=== PATIENT | male | born 1960 | race Caucasian/White ===

== ENCOUNTER 2022-01-02 14:05 | Outpatient (CLI) | payer OTHER, SELFPAY ==
[2022-01-02 21:53] LABS: Albumin* 4.8 g/dL (3.3-5.0)
[2022-01-02 21:54] LABS: Chloride* 102 mmol/L (96-114); Potassium* 4.4 mmol/L (3.6-5.1); Sodium* 139 mmol/L (135-149)
[2022-01-02 21:56] LABS: Aspartate Amino Transferase* 20 U/L (12-35); Bilirubin Total* 0.9 mg/dL (0.1-1.5); Carbon Dioxide* 26 mmol/L (20-32); Cholesterol* 284 mg/dL (90-199); Creatinine* 0.9 mg/dL (0.5-1.5); Estimated Glomerular Filt Rate 98 ml/min; Total Protein* 7.8 g/dL (6.0-8.3)
[2022-01-02 21:57] LABS: Alanine Aminotransferase* 23 U/L (4-50); Alkaline Phosphatase* 85 U/L (40-150); Blood Urea Nitrogen* 19 mg/dL (7-30); Calcium* 9.7 mg/dL (8.4-10.6); Glucose* 328 mg/dL (60-115); HDL Cholesterol* 55 mg/dL (>=40); LDL Cholesterol Calculated 159 mg/dL (<100); Triglycerides* 352 mg/dL (40-149)
[2022-01-02 22:14] LABS: Creatinine Urine 207.3 mg/dL
[2022-01-02 22:18] LABS: Microalbumin Creatinine Ratio 10 mg/g (0-30); Microalbumin Urine 4 mg/dL
== END 2022-01-02 14:06 | disposition home or self-care (01) ==
PROVIDERS: PCP Family Medicine; Visit Provider Family Medicine
DX: Z00.00 Encounter for general adult medical examination without abnormal findings (principal); E11.9 Type 2 diabetes mellitus without complications; I10 Essential (primary) hypertension; E78.5 Hyperlipidemia, unspecified; E66.9 Obesity, unspecified
CPT/HCPCS: 80053; 80061; 82043; 82570

== ENCOUNTER 2023-02-20 08:43 | Outpatient (CLI) | payer OTHER, SELFPAY ==
--- OUTSIDE RECORDS SUMMARY | 2023-02-25 21:17 | XMS_ITS | Clinical Summary ---
Author Name Unknown Organization [facility] Address [place], [place] [address] Care Team Providers Care Electrolysis Engineer Name Role Phone Pcp, No Primary Care Provider Unavailabl e Allergies No known active allergies Medications Medication Sig Dispensed Refills Start Date End Date Status lisinopril (PRINIVIL; ZESTRIL) 10 mg tablet 0 01/24/2013 Act leigh simvastatin (ZOCOR) 10 mg tablet Take 1 tablet by mouth at bedtime. 0 04/16/2013 Active glipiZIDE (GLUCOTROL XL) 5 mg Extended-Release tablet Take 1 tablet by mouth once daily before a meal. 0 04/16/2013 Active metFORMIN (GLUCOPHAGE) 850 mg tablet Take 1 tablet by mouth 2 times daily with meals. 0 04/16/2013 Active aspirin chewable 81 mg chewable tablet Take 1 tablet by mouth once daily with a meal. 0 04/16/2013 Active fish oil-omega-3 fatty acids (FISH OIL) 1,200-360 mg cap Take 1 capsule by mouth once daily. 0 04/16/2013 Active loratadine (CLARITIN) 10 mg tablet Take 1 tablet by mouth once daily. 0 04/16/2013 Active multivitamin-folic acid 0.4 mg (MEN'S MULTI-VITAMIN) tablet Take 1 tablet by mouth once daily. 0 04/16/2013 Active glucosamine sulfate (GLUCOSAMINE) 500 mg tab Take 1 tablet by mouth 3 times daily. 0 04/16/2013 Active Melatonin 5 mg tab Take 1 tablet by mouth at bedtime if needed for Sleep. 0 04/16/2013 Active Saw Jackson 80 mg capsule Take by mouth once daily. 0 04/16/2013 Active Cinnamon Bark (CINNAMON) 500 mg capsule Take by mouth. 0 04/16/2013 Active acetaminophen-codeine , 300-30 mg, (TYLENOL #3) 300-30 mg tabletIndications:Abs cess Take 1-2 tablets by mouth every 4 hours if needed for Pain. 25 tablet 0 04/16/2013 Active Social History Tobacco Use Types Packs/Day Years Used Date Smoking Tobacco: Never Smokeless Tobacco: Never Alcohol Use Standard Drinks/Week Comments Not Asked 0 (1 standard drink = 0.6 oz pur e alcohol) Sex and Gender Information Value Date Recorded Sex Assigned at Not on file Gender Identity Not on file Sexual Orientation Not on file Obstetrics History Last Filed Vital Signs Vital Sign Reading Time Taken Comments Blood Pressure 135/80 04/16/2013 5:06 PM COMMERCIAL ACCOUNTANT Pulse 70 04/16/2013 5:06 PM COMMERCIAL ACCOUNTANT Temperature - - Respiratory Rate 12 04/16/2013 5:06 PM COMMERCIAL ACCOUNTANT Oxygen Saturation 97% 04/16/2013 5:06 PM COMMERCIAL ACCOUNTANT Inhaled Oxygen Concentration - - Weight - - Height - - Body Mass Index - - Plan of Treatment Not on file Care Teams Electrolysis Engineer Relationship Specialty Start Date End Date Pcp, No . PCP - General 04/16/13
== END 2023-02-20 08:44 | disposition home or self-care (01) ==
LOC: NFLDREF 02-25 21:16
PROVIDERS: PCP Family Medicine; Referring Provider Family Medicine; Visit Provider Family Medicine
DX: Z00.00 Encounter for general adult medical examination without abnormal findings (principal); E11.9 Type 2 diabetes mellitus without complications; E78.5 Hyperlipidemia, unspecified; I10 Essential (primary) hypertension; E66.9 Obesity, unspecified
CPT/HCPCS: 80053; 80061; 82043; 82570

== ENCOUNTER 2024-07-21 10:20 | Outpatient (CLI) | payer OTHER, SELFPAY | END 2024-07-21 10:21 | disposition home or self-care (01) | LOC: NFLDREF 07-23 07:41 | PROVIDERS: PCP Family Medicine; Referring Provider Family Medicine; Visit Provider Family Medicine | DX: E11.9 Type 2 diabetes mellitus without complications (principal); N40.0 Benign prostatic hyperplasia without lower urinary tract symptoms; I10 Essential (primary) hypertension; E78.5 Hyperlipidemia, unspecified; N52.9 Male erectile dysfunction, unspecified; E66.9 Obesity, unspecified; Z12.5 Encounter for screening for malignant neoplasm of prostate | CPT/HCPCS: 80053; 80061; 82043; 82570; G0103 ==